=== PATIENT | male | born 1965 | race Caucasian/White ===

== ENCOUNTER 2018-05-31 06:36 | Emergency (ER) | payer MEDICAID ==
[~2018-05-31] VITALS: Ht 180.3 cm; Wt 127.3 kg
[2018-05-31 06:45] VITALS: BP 145/85
[2018-05-31] MEDS ORDERED: HYDROcodone/acetaminophen 5mg/325mg tablet PO ONE (07:20)
[2018-05-31] MEDS ORDERED: ketorolac trometh inj. 60 MG/2 ML VIAL IM ONE (07:20)
[2018-06-01] MEDS ORDERED: FLUT16SP2 BOTHNARES (04:12)
[2018-06-01] MEDS ORDERED: SILV20CR13 TOP (04:12)
[2018-06-01] MEDS ORDERED: EZET10TA13 PO (04:12)
[2018-06-01] MEDS ORDERED: ASPI-1264 PO (04:12)
[2018-06-01] MEDS ORDERED: DIPH-423 PO (04:12)
[2018-06-01] MEDS ORDERED: DIVA500T2 PO (04:12)
[2018-06-01] MEDS ORDERED: METO-477 PO (04:12)
[2018-06-01] MEDS ORDERED: RANI300T7 PO (04:12)
[2018-06-01] MEDS ORDERED: ROSU40TA PO (04:12)
[2018-06-01] MEDS ORDERED: GUAI200T5 PO (04:12)
[2018-06-01] MEDS ORDERED: IBUP-1984 PO (04:12)
[2018-06-01] MEDS ORDERED: MONT10TA21 PO (04:12)
[2018-06-01] MEDS ORDERED: MONVCR TP (04:12)
[2018-06-01] MEDS ORDERED: AMMO225L14 TP (04:12)
[2018-06-01] MEDS ORDERED: DICY10CA88 PO (04:12)
[2018-06-01] MEDS ORDERED: PSYL660P13 PO (04:12)
[2018-06-01] MEDS ORDERED: LISI40TA4 PO (04:12)
[2018-06-01] MEDS ORDERED: CLOT15CR73 TP (04:12)
[2018-06-01] MEDS ORDERED: BUDE0.5A11 NEB (04:12)
[2018-06-01] MEDS ORDERED: AMLO5TAB4 PO (04:12)
[2018-06-01] MEDS ORDERED: HYDR-4353 PO (04:12)
[2018-06-01] MEDS ORDERED: CYCL-1 PO (04:12)
[2018-06-01] MEDS ORDERED: LANS15CA18 PO (04:12)
[2018-06-01] MEDS ORDERED: POTA10CA44 PO (04:12)
[2018-06-01] MEDS ORDERED: PRAZ2CAP2 PO (04:12)
[2018-06-01] MEDS ORDERED: SPIR25TA PO (04:12)
[2018-06-01] MEDS ORDERED: FURO40TA4 PO (04:12)
[2018-06-01] MEDS ORDERED: CARB1DRO18 OP (04:12)
[2018-06-01] MEDS ORDERED: CYAN100020 PO (04:12)
[2018-06-01] MEDS ORDERED: FISH12002 PO (04:12)
[2018-06-01] MEDS ORDERED: BUPR100T5 PO (04:12)
[2018-06-01] MEDS ORDERED: TIOT18CA3 INH (04:12)
[2018-06-01] MEDS ORDERED: CHOL400T14 PO (04:12)
[2018-06-01] MEDS ORDERED: [UNRECOGNIZED DRUG - OTHER] TP (04:12)
[2018-06-01] MEDS ORDERED: TRAZ-219 PO (04:12)
[2018-06-01] MEDS ORDERED: ZOLP10TA PO (04:12)
== END 2018-05-31 07:47 | disposition home or self-care (01) ==
LOC: ER 06:37
DX: M54.5 Low back pain (principal); M62.830 Muscle spasm of back; M54.6 Pain in thoracic spine; I10 Essential (primary) hypertension; E11.9 Type 2 diabetes mellitus without complications; E78.00 Pure hypercholesterolemia, unspecified; Z88.0 Allergy status to penicillin; Z88.8 Allergy status to other drugs, medicaments and biological substances; Z60.2 Problems related to living alone; W18.39XA Other fall on same level, initial encounter; Y93.89 Activity, other specified; Y92.89 Other specified places as the place of occurrence of the external cause; Y99.8 Other external cause status
CPT/HCPCS: 96372; 99284; J1885

== ENCOUNTER 2018-06-01 01:46 | Emergency (ER) | payer MEDICAID ==
[~2018-06-01] VITALS: Ht 175.3 cm; Wt 127.0 kg
[2018-06-01] MEDS ORDERED: ondansetron/PF 4mg/2ml inj IM ONE (02:30)
[2018-06-01] MEDS ORDERED: morphine 4 MG/ML inj SYRINge IM ONE (02:30)
[2018-06-01 03:15] VITALS: BP 146/100
[2018-06-01] MEDS ORDERED: FURO40TA4 PO (04:12)
[2018-06-01] MEDS ORDERED: CARB1DRO18 OP (04:12)
[2018-06-01] MEDS ORDERED: CLOT15CR73 TP (04:12)
[2018-06-01] MEDS ORDERED: ASPI-1264 PO (04:12)
[2018-06-01] MEDS ORDERED: FISH12002 PO (04:12)
[2018-06-01] MEDS ORDERED: EZET10TA13 PO (04:12)
[2018-06-01] MEDS ORDERED: BUPR100T5 PO (04:12)
[2018-06-01] MEDS ORDERED: CYCL-1 PO (04:12)
[2018-06-01] MEDS ORDERED: MONT10TA21 PO (04:12)
[2018-06-01] MEDS ORDERED: FLUT16SP2 BOTHNARES (04:12)
[2018-06-01] MEDS ORDERED: SPIR25TA PO (04:12)
[2018-06-01] MEDS ORDERED: ZOLP10TA PO (04:12)
[2018-06-01] MEDS ORDERED: PSYL660P13 PO (04:12)
[2018-06-01] MEDS ORDERED: LANS15CA18 PO (04:12)
[2018-06-01] MEDS ORDERED: [UNRECOGNIZED DRUG - OTHER] TP (04:12)
[2018-06-01] MEDS ORDERED: CHOL400T14 PO (04:12)
[2018-06-01] MEDS ORDERED: DIPH-423 PO (04:12)
[2018-06-01] MEDS ORDERED: SILV20CR13 TOP (04:12)
[2018-06-01] MEDS ORDERED: AMLO5TAB4 PO (04:12)
[2018-06-01] MEDS ORDERED: DIVA500T2 PO (04:12)
[2018-06-01] MEDS ORDERED: LISI40TA4 PO (04:12)
[2018-06-01] MEDS ORDERED: TIOT18CA3 INH (04:12)
[2018-06-01] MEDS ORDERED: CYAN100020 PO (04:12)
[2018-06-01] MEDS ORDERED: METO-477 PO (04:12)
[2018-06-01] MEDS ORDERED: IBUP-1984 PO (04:12)
[2018-06-01] MEDS ORDERED: PRAZ2CAP2 PO (04:12)
[2018-06-01] MEDS ORDERED: AMMO225L14 TP (04:12)
[2018-06-01] MEDS ORDERED: ROSU40TA PO (04:12)
[2018-06-01] MEDS ORDERED: POTA10CA44 PO (04:12)
[2018-06-01] MEDS ORDERED: RANI300T7 PO (04:12)
[2018-06-01] MEDS ORDERED: MONVCR TP (04:12)
[2018-06-01] MEDS ORDERED: TRAZ-219 PO (04:12)
[2018-06-01] MEDS ORDERED: BUDE0.5A11 NEB (04:12)
[2018-06-01] MEDS ORDERED: GUAI200T5 PO (04:12)
[2018-06-01] MEDS ORDERED: DICY10CA88 PO (04:12)
[2018-06-01] MEDS ORDERED: HYDR-4353 PO (04:12)
== END 2018-06-01 03:40 | disposition home or self-care (01) ==
LOC: ER 01:47
DX: S29.012A Strain of muscle and tendon of back wall of thorax, initial encounter (principal); R61 Generalized hyperhidrosis; R20.0 Anesthesia of skin; R32 Unspecified urinary incontinence; I10 Essential (primary) hypertension; E11.9 Type 2 diabetes mellitus without complications; E78.00 Pure hypercholesterolemia, unspecified; E66.01 Morbid (severe) obesity due to excess calories; Z88.0 Allergy status to penicillin; Z88.8 Allergy status to other drugs, medicaments and biological substances; Z79.82 Long term (current) use of aspirin; Z79.899 Other long term (current) drug therapy; Z60.2 Problems related to living alone; W10.8XXA Fall (on) (from) other stairs and steps, initial encounter; Y93.89 Activity, other specified; Y92.89 Other specified places as the place of occurrence of the external cause; Y99.8 Other external cause status
CPT/HCPCS: 72070; 72100; 96372; 99283; J2270; J2405

== ENCOUNTER 2022-01-07 03:21 | Emergency (ER) | payer OTHER, MEDICAID ==
[~2022-01-07] VITALS: Ht 175.3 cm; Wt 126.4 kg
[~2022-01-07 03:21] MED LIST: AMLO5TAB4 PO; AMMO225L14 TP; ASPI-1264 PO; BUDE0.5A11 NEB; BUPR100T5 PO; CARB1DRO18 OP; CHOL400T14 PO; CLOT15CR73 TP; CYAN100020 PO; CYCL-1 PO; DICY10CA88 PO; DIPH-423 PO; DIVA500T2 PO; FISH12002 PO; FLUT16SP2 BOTHNARES; FURO40TA4 PO; GUAI200T5 PO; HYDR-4353 PO; IBUP-1984 PO; LANS15CA18 PO; LISI40TA13 PO; METO-477 PO; MICO45CR46 TP; MONT10TA21 PO; POTA10CA44 PO; PRAZ2CAP2 PO; PSYL660P13 PO; RANI300T7 PO; ROSU40TA PO; SILV20CR13 TOP; SPIR25TA PO; TIOT18CA3 INH; TRAZ-256 PO; ZET10T PO; ZOLP10TA PO; [UNRECOGNIZED DRUG - OTHER] TP
[2022-01-07 03:30] VITALS: BP 172/95
[2022-01-07 06:12] LABS: BASOPHILS # (AUTO) 0.1 X10'3 (0-0.2); BASOPHILS % (AUTO) 0.6 % (0-1); EOSINOPHILS # (AUTO) 0.2 X10'3 (0-0.9); EOSINOPHILS % (AUTO) 1.9 % (0-6); HEMATOCRIT 47.7 % (42.0-52.0); HEMOGLOBIN 16.5 g/dl (14.0-17.9); LYMPHOCYTES # (AUTO) 2.9 X10'3 (1.1-4.8); LYMPHOCYTES % (AUTO) 30.7 % (21-51); MEAN CORPUSCULAR HEMOGLOBIN 31.1 PG (27.0-31.0); MEAN CORPUSCULAR HGB CONC 34.6 g/dL (33.0-36.5); MEAN CORPUSCULAR VOLUME 89.9 FL (78-98); MEAN PLATELET VOLUME 9.2 FL (7.4-10.4); MONOCYTES % (AUTO) 10.7 % (2-12); NEUTROPHILS # (AUTO) 5.3 X10'3 (1.8-7.7); NEUTROPHILS % (AUTO) 56.1 % (42-75); PLATELET COUNT 249 X10'3 (140-440); RED CELL DISTRIBUTION WIDTH 13.6 % (11.5-14.5); WHITE BLOOD COUNT 9.4 X10'3 (4.5-11.0)
[2022-01-07] MEDS ORDERED: iohexol 300mg/ml 100ml inj. ONE (06:13)
[2022-01-07 06:27] LABS: ALANINE AMINOTRANSFERASE 93 U/L (12-78); ALBUMIN 3.7 G/DL (3.4-5.0); ALBUMIN/GLOBULIN RATIO 0.7 (1.1-1.5); ALKALINE PHOSPHATASE 72 IU/L (46-116); ANION GAP 11 (8-16); ASPARTATE AMINO TRANSFERASE 90 U/L (10-37); BILIRUBIN,TOTAL 0.8 MG/DL (0.1-1.0); BLOOD UREA NITROGEN 12 MG/DL (7-18); BUN/CREATININE RATIO 10.5 (5.4-32.0); CALCIUM 9.2 MG/DL (8.5-10.1); CHLORIDE 101 MMOL/L (99-107); CREATININE 1.14 MG/DL (0.60-1.10); GLUCOSE 140 MG/DL (70-104); POTASSIUM 4.4 MMOL/L (3.5-5.1); SODIUM 136 MMOL/L (135-145); TOTAL CARBON DIOXIDE 24.2 MMOL/L (24-32); TOTAL PROTEIN 8.8 G/DL (6.4-8.2); eGFR 66 ML/MIN
== END 2022-01-07 09:22 | disposition home or self-care (01) ==
LOC: ER 03:22
DX: K65.1 Peritoneal abscess (principal); E78.00 Pure hypercholesterolemia, unspecified; I10 Essential (primary) hypertension; Z88.0 Allergy status to penicillin; Z88.5 Allergy status to narcotic agent; Z79.899 Other long term (current) drug therapy; Z79.1 Long term (current) use of non-steroidal anti-inflammatories (NSAID)
CPT/HCPCS: 36415; 74177; 80053; 84145; 85025; 85610; 99285; J3490; J7030; Q9967